=== PATIENT | female | born 1970 | race American Indian/Alaskan Native ===

== ENCOUNTER 2017-06-07 13:35 | Inpatient (IN) | payer MEDICAID, OTHER ==
[2017-06-07 13:35] VITALS: BMI 107.6
--- NOTE | 2017-06-07 14:48 | C.PDOC ---
Time Seen by Provider: 06/07/17 14:36 Chief Complaint (Nursing): Substance Abuse Past Medical History Vital Signs: Last Vital Signs Temp 98.3 F 06/07/17 14:17 Pulse 97 H 06/07/17 14:17 Resp 20 06/07/17 14:17 BP 138/83 06/07/17 14:17 Pulse Ox 100 06/07/17 14:17 - Medical History PMH: Diabetes Denies: Hepatitis, HIV, HTN, Seizures, Sexually Transmitted Disease - [facility] Procedures DETOXIFICATION SERVICES FOR SUBSTANCE ABUSE TREATMENT (02/26/16) Family History: States: Unknown Family Hx - Social History Hx Tobacco Use: No Hx Alcohol Use: No Hx Substance Use: Yes (Heroin; last use yesterday ) - Immunization History Hx Tetanus Toxoid Vaccination: No Hx Influenza Vaccination: Yes Hx Pneumococcal Vaccination: No ED Course And Treatment O2 Sat by Pulse Oximetry: 100 Disposition - Disposition
--- NOTE | 2017-06-07 14:51 | C.PDOC ---
History Of Present Illness 46 y/o female with history of Hep C and DM presents to ED requesting heroin detox, states she uses 5-10 bags daily intranasal and reports last used this morning. Patient has complaints of chronic non healing ulcer to right 1st toe and states her LMP was 05/2017, concerned for . Patient denies fever, chills, nausea, vomiting or any other complaints at this time. Time Seen by Provider: 06/07/17 14:36 Chief Complaint (Nursing): Substance Abuse History Per: Patient History/Exam Limitations: no limitations Onset/Duration Of Symptoms: Days Current Symptoms Are (Timing): Still Present Suicide/Self Injury Attempted (Context): None Past Medical History Reviewed: Historical Data, Nursing Documentation, Vital Signs Vital Signs: Last Vital Signs Temp 98.3 F 06/07/17 14:17 Pulse 97 H 06/07/17 14:17 Resp 20 06/07/17 14:17 BP 138/83 06/07/17 14:17 Pulse Ox 100 06/07/17 15:00 - Medical History PMH: Diabetes Surgical History: No Surg Hx - [facility] Procedures DETOXIFICATION SERVICES FOR SUBSTANCE ABUSE TREATMENT (02/26/16) Family History: States: No Known Family Hx - Social History Hx Tobacco Use: No Hx Alcohol Use: No Hx Substance Use: Yes (Heroin; last use yesterday ) - Immunization History Hx Tetanus Toxoid Vaccination: No Hx Influenza Vaccination: Yes Hx Pneumococcal Vaccination: No Review Of Systems Constitutional: Negative for: Fever, Chills Gastrointestinal: Negative for: Nausea, Vomiting Musculoskeletal: Positive for: Foot Pain Skin: Negative for: Rash Psych: Negative for: Anxiety, Depression, Suicidal ideation Physical Exam - Physical Exam Appears: Non-toxic, No Acute Distress Skin: Warm, Dry, No Rash, Other (Right 1st toe ulcer non healed ) Head: Atraumatic, Normacephalic Eye(s): bilateral: Normal Inspection Oral Mucosa: Moist Neck: Normal ROM, Supple Cardiovascular: Rhythm Regular Respiratory: Normal Breath Sounds, No Rales, No Rhonchi, No Wheezing Gastrointestinal/Abdominal: Soft, No Tenderness, No Guarding, No Rebound Back: No CVA Tenderness Extremity: Normal ROM, Capillary Refill (<2 seconds), No Deformity Neurological/Psych: Oriented x3, Normal Speech, Normal Motor, Normal Sensation ED Course And Treatment - Laboratory Results Result Diagrams: 06/07/17 15:00 06/07/17 15:00 Lab Interpretation: Abnormal (Glucose 284 Patient used her own Insulin injection to cover.) O2 Sat by Pulse Oximetry: 100 (RA) Pulse Ox Interpretation: Normal Progress Note: Blood work, UA ordered. Patient is medically cleared for detox admission. Disposition - Disposition Disposition: HOSPITALIZED Disposition Time: 15:28 Condition: STABLE - POA Present On Arrival: Poor Glycemic Control - Clinical Impression Clinical Impression: Opioid use disorder, severe, dependence - Scribe Statement The provider has reviewed the documentation as recorded by the Mily Boyle All medical record entries made by the Mily were at my direction and personally dictated by me. I have reviewed the chart and agree that the record accurately reflects my personal performance of the history, physical exam, medical decision making, and the department course for this patient. I have also personally directed, reviewed, and agree with the discharge instructions and disposition.
[2017-06-07 15:03] LABS: BASO % 0.5 % (0.0-2.0); EOS # 0.1 K/uL (0.0-0.7); EOS % 1.1 % (0.0-4.0); LYMPH # 2.3 K/uL (1.0-4.3); MEAN CELL VOLUME 89.1 fL (81.0-99.0); MEAN CORPUSCULAR HEMOGLOBIN 30.2 pg (27.0-31.0); MEAN CORPUSCULAR HGB CONC 33.9 g/dL (33.0-37.0); MEAN PLATELET VOLUME 8.1 fL (7.2-11.7); MONO # 0.7 K/uL (0.0-0.8); MONO % 8.2 % (0.0-10.0); NEUT # 5.7 K/uL (1.8-7.0); NEUT % 64.2 % (50.0-75.0); RBC 3.63 Mil/uL (3.80-5.20); RED CELL DISTRIBUTION WIDTH 14.1 % (11.5-14.5)
[2017-06-07 15:10] LABS: HCG,QUALITATIVE URINE NEGATIVE (NEGATIVE); WHITE BLOOD COUNT 8.8 K/uL (4.8-10.8)
[2017-06-07 15:14] LABS: SQUAMOUS EPITHIAL < 1 /hpf (0-5); URINE BILIRUBIN NEGATIVE (NEGATIVE); URINE BLOOD NEGATIVE (NEGATIVE); URINE CLARITY Clear (Clear); URINE COLOR Colorless (YELLOW); URINE GLUCOSE (UA) 3+ mg/dL (Normal); URINE LEUKOCYTE ESTERASE NEG Leu/uL (Negative); URINE PROTEIN NEGATIVE (NEGATIVE); URINE UROBILINOGEN NORMAL mg/dL (0.2-1.0)
[2017-06-07 15:19] LABS: ALBUMIN 3.9 g/dL (3.5-5.0); ALT/SGPT 27 U/L (9-52); AST/SGOT 33 U/L (14-36); BLOOD UREA NITROGEN 14 mg/dL (7-17); CALCIUM 8.8 mg/dl (8.6-10.4); GFR AFRICAN-AMERICAN > 60; GFR NON-AFRICAN AMERICAN > 60
[2017-06-07 15:20] LABS: BARBITURATES, UR NEGATIVE (NEGATIVE); BENZODIAZEPINES, UR NEGATIVE (NEGATIVE); PHENCYCLIDINE, UR NEGATIVE (NEGATIVE)
[2017-06-07 15:27] LABS: OPIATES, UR POSITIVE (NEGATIVE)
--- NOTE | 2017-06-07 16:00 | PCM.BM ---
<Marvin Herron - Last Filed: 06/07/17 16:11> Treatment Plan Problems - Problems identified on initial assessmt potential for opiate withdrawal Date Initiated: 06/07/17 Time Initiated: 16:12 Assessment reference: NA Treatment assets and liabiliti Patient Assests: cooperative, cognitively intact Patient Liabilities: substance abuse, medical problems (diabetic) - Milieu Protocol Maintain good personal hygiene: daily Encourage regular showers, daily Remind patient to perform daily oral care, daily Assist patient to perform ADL's Conduct patient checks and document Observation sheet: Q15 minutes Maintain personal safety: every shift Educate patient to report safety concerns to staff, every shift Monitor environment for contraband/sharps Medication safety: Monitor for expected outcome, potential side effects: daily, Assess barriers to learning: daily, Assess readiness for medication education: daily <Susanna Cervantes - Last Filed: 06/08/17 13:12> Family Contact - Goals for Treatment Patient goals for treatment: Complete detox and transition to outpatient therapy. Discharge/Continuing Care - Education Needs Education Needs: Patient Medication, Patient Diagnosis/Disease Process, Patient Coping Skills, Patient Anger Management skills, Patient Placement options, Patient Community resources - Discharge Discharge Criteria: No longer exhibiting s/s of withdrawal, Reduction of target symptoms Discharge to:: Home - Treatment Team Participation Patient/Family/SO Statement: 06/08/17 13:20 "i wanna go to outpatient after this..." Discussed with Family/SO: No Was Patient/Family/SO present at Treatment Team Meeting: Yes <Ari Wells - Last Filed: 06/10/17 16:49> - Diagnosis (1) Opioid use disorder, severe, dependence Status: Acute Interventions: 06/10/17 16:49 * Assess 7x/week regarding severity of withdrawal * Educate regarding risks, benefits, side effects and alternatives of medications * Use Motivational Interviewing for abstinence * Use CBT for relapse prevention * Medication management for withdrawal symptoms * Encourage medication assisted treatment *
[2017-06-07] MEDS: Insulin Detemir 100 units/ml Vial (Levemir) SC SCH (18:16)
[2017-06-08] MEDS: Insulin Detemir 100 units/ml Vial (Levemir) SC SCH ×2 (10:00→17:59)
--- NOTE | 2017-06-08 10:32 | PCM.PSYCH ---
Initial Psychiatric Evaluation - Initial Psychiatric Evaluation Type of Admission: Voluntary Legal Status: Capacity Chief Complaint (in patient's own words): " I need help." History of Present Illness and Precipitating Events: This is a 46 year old female who presents to the ED for heroin detox. Patient states she is "tired of getting high." Patient uses 10 bags of heroin per day; she states she snorts it. Patient has been using for 4 years. Patient states she has previously been to [facility] for rehab before. She states her longest sobriety is 2 years. Patient states she does not use any other substances, including marijuana, PCP, and cocaine. Patient denies alcohol use. Patient denies tobacco use. Patient states she feels nauseous. She was able to sleep and eat her breakfast. Patient denies previous psychiatric history or hospitalizations. Patient denies depression, suicidal ideation, paranoia, or hallucinations. She states sometimes she gets anxious. Patient states she has never taken medication for anxiety. Medical history: Diabetes Allergies: Family history: denies psych history: denies Current Medications: Active Medications Generic Name Dose Route Start Last Admin Trade Name Freq PRN Reason Stop Dose Admin Aspirin 81 mg 06/08/17 10:00 06/08/17 09:46 Aspirin Chewable PO 81 mg DAILY ROLO Administration Clonidine HCl 0.1 mg 06/07/17 17:46 06/07/17 18:03 Catapres PO 0.1 mg Q6 PRN Administration WITHDRAWAL SYMPTOMS COW>5 Hydroxyzine HCl 25 mg 06/07/17 17:45 06/07/17 21:35 Atarax PO 25 mg Q4 PRN Administration anxiety Insulin Detemir 15 unit 06/07/17 18:00 06/08/17 10:00 Levemir SC 15 unit BID ROLO Administration Loperamide HCl 2 mg 06/07/17 21:20 Imodium PO QID PRN Diarrhea Metformin HCl 1,000 mg 06/07/17 18:00 06/08/17 09:46 Glucophage PO 1,000 mg BID ROLO Administration Rosuvastatin Calcium 20 mg 06/07/17 22:00 06/07/17 21:35 Crestor PO 20 mg HS ROLO Administration Sitagliptin Phosphate 100 mg 06/08/17 10:00 06/08/17 09:47 Januvia PO 100 mg DAILY ROLO Administration Trazodone HCl 50 mg 06/07/17 22:00 06/07/17 21:35 Desyrel PO 50 mg HS ROLO Administration Past Psychiatric History - Past Psychiatric History Previous Treatment History: None History of ETOH/Drug Use: Opioid Use Disorder History of Family Illness: Denies Pertinent Medical Hx (Current Medical&Sleep Prob, Allergies): Allergies Allergy/AdvReac Type Severity Reaction Status Date / Time No Known Allergies Allergy Verified 10/22/15 07:29 Metformin HCl [Metformin] 1,000 mg PO BID 01/06/15 GlipiZIDE [Glipizide] 10 mg PO DAILY 02/26/16 Insulin Glargine, Recombina [Lantus] 0 unit SC ACHS 02/26/16 hydrOXYzine HCl [Atarax] 25 mg PO BID #0 tab 03/02/16 metFORMIN [glucOPHAGE] 1,000 mg PO BIDCC #0 tab 03/02/16 traZODone [Desyrel] 50 mg PO HS PRN #0 tab 03/02/16 Review of Systems - Review of Systems All systems: reviewed and no additional remarkable complaints except - Psychiatric Psychiatric: Anxiety. absent: Depression, Hallucinations, Homicidal Ideation, Hopelessness, Paranoia, Suicidal Ideation Mental Status Examination - Personal Presentation Personal Presentation: Looks stated age - Affect Affect: Broad - Motor Activity Motor Activity: Calm - Reliability in Providing Information Reliability in Providing Information: Fair - Speech Speech: Organized - Mood Mood: Neutral - Formal Thought Process Formal Thought Process: No Impairment - Obsessions/Compulsions Obsessions: No Compulsions: No - Cognitive Functions Orientation: Person, Place, Situation, Time Sensorium: Alert Attention/Concentration: Attentive Abstract Thinking: [place] Estimate of Intelligence: Below average Judgement: Imparied, as evidence by: Poor judgement, Intact, as evidence by: Insight regarding need for hospitalization - Risk Risk: Withdrawal, Diminished functioning - Limitations Limitations: Living alone DSM 5 DX - DSM 5 DSM 5 Diagnosis: Opioid Use Disorder, severe Opioid Withdrawal - Recommended/Plan of Treatment Treatment Recommendations and Plan of Treatment: Start taper Subutex 8mg Gabapentin for augmentation As needed medications All risks, benefits and alternatives of the meds discussed, and the pt agreed and understood. Attend groups and activities Supportive therapy and psychoeducation [place] for abstinence CBT for relapse prevention Encourage MAT Refer to rehab or IOP, and self-help groups 34 min - Smoking Cessation Smoking Cessation Initiated: No
--- NOTE | 2017-06-08 12:30 | CP.PCM.CON ---
History of Present Illness - History of Present Illness History of Present Illness: Podiatry Consult Note- Dr. Velasco This is a 46 yo female pt recently admitted for opioid dependence detox seen at bedside today with Dr. Velasco following request for podiatry consult. Pt states that she has had an ulcer to her L great toe for 1 month. Denies any pain or discomfort to the toe, denies seeing any pus or drainage, denies any recent change in shoe gear. She denies f/n/v/c/sob/cp at this time. PMH: DM2, + Hep C, heroin dependence ALL: NKDA meds: see home med list Soc Hx: heroin abuse Review of Systems - Review of Systems Review of Systems: all systems reviewed and found neg outside hpi Past Patient History - Infectious Disease Hx of Infectious Diseases: None - Tetanus Immunizations Tetanus Immunization: Unknown - Past Medical History & Family History Past Medical History?: Yes - Past Social History Smoking Status: Light Smoker < 10 Cigarettes Daily - CARDIAC Hx Cardiac Disorders: No Hx Hypertension: No - PULMONARY Hx Tuberculosis: No - NEUROLOGICAL HX Cerebrovascular Accident: No Hx Seizures: No - ENDOCRINE/METABOLIC Hx Diabetes Mellitus Type 2: Yes - HEMATOLOGICAL/ONCOLOGICAL Hx Cancer: No Hx Human Immunodeficiency Virus (HIV): No - INTEGUMENTARY Other/Comment: left great toe infection - MUSCULOSKELETAL/RHEUMATOLOGICAL Hx Falls: No - GENITOURINARY/GYNECOLOGICAL Hx Sexually Transmitted Disorders: No - PSYCHIATRIC Hx Substance Use: No - SURGICAL HISTORY Hx Surgeries: Yes Other/Comment: Fibroid removed - ANESTHESIA Hx Anesthesia: Yes Hx Anesthesia Reactions: No Hx Malignant Hyperthermia: No Meds Allergies/Adverse Reactions: Allergies Allergy/AdvReac Type Severity Reaction Status Date / Time No Known Allergies Allergy Verified 10/22/15 07:29 - Medications Medications: Current Medications Aspirin (Aspirin Chewable) 81 mg PO DAILY [facility] Last Admin: 06/08/17 09:46 Dose: 81 mg Clonidine HCl (Catapres) 0.1 mg PO Q6 PRN PRN Reason: WITHDRAWAL SYMPTOMS COW>5 Last Admin: 06/07/17 18:03 Dose: 0.1 mg Hydroxyzine HCl (Atarax) 25 mg PO Q4 PRN PRN Reason: anxiety Last Admin: 06/07/17 21:35 Dose: 25 mg Insulin Detemir (Levemir) 15 unit SC BID [facility] Last Admin: 06/08/17 10:00 Dose: 15 unit Loperamide HCl (Imodium) 2 mg PO QID PRN PRN Reason: Diarrhea Metformin HCl (Glucophage) 1,000 mg PO BID [facility] Last Admin: 06/08/17 09:46 Dose: 1,000 mg Rosuvastatin Calcium (Crestor) 20 mg PO [facility] Last Admin: 06/07/17 21:35 Dose: 20 mg Sitagliptin Phosphate (Januvia) 100 mg PO DAILY [facility] Last Admin: 06/08/17 09:47 Dose: 100 mg Trazodone HCl (Desyrel) 50 mg PO HS [facility] Last Admin: 06/07/17 21:35 Dose: 50 mg Physical Exam - Constitutional Appears: Non-toxic, No Acute Distress - Extremities Exam Additional comments: Left foot focused: dressing appears c/d/i VASC-pedal pulses fully palpable, skin temp runs warm to cool, cap refill brisk to all digits, mild-mod edema noted to L hallux NEURO- gross and protective pedal sensation somewhat diminished DERM- there is a full-thickness ulceration (measures approx 0.5x0.4x0.4cm) noted to distal-medial aspect of L hallux with hyperkeratotic border and mixed fibrous base, there is no purulence, neg drainage, neg PTB, neg malodor, neg erythema MSK- neg tenderness to palp of hallux ulceration, MMT 5/5 all directions - Neurological Exam Neurological exam: Alert, CN II-XII Intact, Oriented x3 - Psychiatric Exam Psychiatric exam: Normal Affect, Normal Mood Results - Vital Signs Recent Vital Signs: Last Vital Signs Temp 99.1 F 06/08/17 08:48 Pulse 96 H 06/08/17 08:48 Resp 18 06/08/17 08:48 BP 135/82 06/08/17 08:48 Pulse Ox 99 06/08/17 08:48 - Labs Result Diagrams: 06/07/17 15:00 06/07/17 15:00 Labs: Laboratory Results - last 24 hr 06/07/17 06/07/17 06/07/17 15:00 15:00 15:00 WBC 8.8 D RBC 3.63 L Hgb 11.0 Hct 32.3 L MCV 89.1 MCH 30.2 MCHC 33.9 RDW 14.1 Plt Count 397 D MPV 8.1 Neut % (Auto) 64.2 Lymph % (Auto) 26.0 [place] % (Auto) 8.2 Eos % (Auto) 1.1 Baso % (Auto) 0.5 Neut # (Auto) 5.7 Lymph # (Auto) 2.3 [place] # (Auto) 0.7 Eos # (Auto) 0.1 Baso # (Auto) 0.0 Sodium 133 Potassium 4.0 Chloride 100 Carbon Dioxide 20 L Anion Gap 17 BUN 14 Creatinine 0.6 L Est GFR ( Amer) > 60 Est GFR (Non-Af Amer) > 60 POC Glucose (mg/dL) Random Glucose 284 H Calcium 8.8 Total Bilirubin 0.3 AST 33 ALT 27 Alkaline Phosphatase 85 Total Protein 7.7 Albumin 3.9 Globulin 3.8 Albumin/Globulin Ratio 1.0 Urine Color Colorless Urine Clarity Clear Urine pH 5.0 Ur Specific [place] 1.008 Urine Protein Negative Urine Glucose (UA) 3+ H Urine Ketones Negative Urine Blood Negative Urine Nitrate Negative Urine Bilirubin Negative Urine Urobilinogen Normal Ur Leukocyte Esterase Neg Urine WBC (Auto) < 1 Urine RBC (Auto) < 1 Ur Squamous Epith Cells < 1 Urine HCG, Qual Negative Urine Opiates Screen Urine Methadone Screen Ur Barbiturates Screen Ur Phencyclidine Scrn Ur Amphetamines Screen U Benzodiazepines Scrn U Oth Cocaine Metabols U Cannabinoids Screen Alcohol, Quantitative < 10 06/07/17 06/07/17 15:00 21:40 WBC RBC Hgb Hct MCV MCH MCHC RDW Plt Count MPV Neut % (Auto) Lymph % (Auto) [place] % (Auto) Eos % (Auto) Baso % (Auto) Neut # (Auto) Lymph # (Auto) [place] # (Auto) Eos # (Auto) Baso # (Auto) Sodium Potassium Chloride Carbon Dioxide Anion Gap BUN Creatinine Est GFR ( Amer) Est GFR (Non-Af Amer) POC Glucose (mg/dL) 235 H Random Glucose Calcium Total Bilirubin AST ALT Alkaline Phosphatase Total Protein Albumin Globulin Albumin/Globulin Ratio Urine Color Urine Clarity Urine pH Ur Specific [place] Urine Protein Urine Glucose (UA) Urine Ketones Urine Blood Urine Nitrate Urine Bilirubin Urine Urobilinogen Ur Leukocyte Esterase Urine WBC (Auto) Urine RBC (Auto) Ur Squamous Epith Cells Urine HCG, Qual Urine Opiates Screen Positive H Urine Methadone Screen Negative Ur Barbiturates Screen Negative Ur Phencyclidine Scrn Negative Ur Amphetamines Screen Negative U Benzodiazepines Scrn Negative U Oth Cocaine Metabols Negative U Cannabinoids Screen Negative Alcohol, Quantitative Assessment & Plan - Assessment and Plan (Free Text) Assessment: 46 yo female pt admitted for opiate detox with ulceration of L hallux 2/2 to poorly controlled diabetic neuropathy Plan: Pt S&E in detox until with Dr. Velasco present L hallux dressed with DSD Sx shoe ordered for ambulation L foot x-ray and bone scan ordered to r/o OM Will follow
[2017-06-08] MEDS ORDERED: Buprenorphine Hydrochloride 2 mg SL ONE ×2 (14:30→18:04)
[2017-06-08] MEDS: Buprenorphine Hydrochloride 2 mg SL SCH ×3 (15:38→18:03)
--- NOTE | 2017-06-08 17:12 | RAD ---
PROCEDURE: Left Foot Radiographs. HISTORY: L hallux ulcer (r/o OM) COMPARISON: None. FINDINGS: BONES: No acute fracture or destructive bony lesion identified. No periosteal reaction or erosive changes seen related to the phalanges of the great toe in particular. JOINTS: Normal. SOFT TISSUES: Wide-based ulceration is suggested at the distal great toe soft tissues medially. Diffuse soft tissue edema surrounds great toe without emphysematous changes grossly evident. OTHER FINDINGS: None. IMPRESSION: Soft tissue changes compatible with the clinical history of ulcer at the great toe however there is no obvious radiographic pattern suggest osteomyelitis at the great toe or remaining osseous elements of the left foot. MRI is more sensitive and can be performed if clinically warranted.
[2017-06-09] MEDS: Buprenorphine Hydrochloride 2 mg SL SCH (09:43)
[2017-06-09] MEDS: Insulin Detemir 100 units/ml Vial (Levemir) SC SCH ×2 (09:44→17:12)
--- NOTE | 2017-06-09 14:18 | CP.PCM.PCO ---
Physician Communication Note - Physician Communication Note Physician Communication Note: Pt refusing bone scan, scan cancelled.
--- NOTE | 2017-06-09 14:53 | PCM.PYCHPN ---
Psychiatric Progress Note - Psychiatric Progress Note Patient seen today, length of contact: 15 minutes Patient Chief Complaint: "I am doing okay." Problems Identified/Issues Discussed: The pt is seen, chart reviewed, case discussed with staff. Patient states she did not sleep well. She states she has pain in her back. Support given, CBT and IL used briefly No new symptoms reported, improving slowly and needs more time No SEs from medications, risks discussed. Medical Problems: Diabetes Medical Record Reviewed: Yes Mental Status Examination - Cognitive Function Orientation: Person, Place, Situation, Time Attention: WNL Concentration: WNL Association: WNL Fund of Knowledge: WNL - Mood Mood: Neutral - Affect Affect: Broad - Speech Speech: Appropriate - Formal Thought Process Formal Thought Process: No Impairment - Suicidal Ideation Suicidal Ideation: No - Homicidal Ideation Homicidal Ideation: No Goal/Treatment Plan - Goal/Treatment Plan Need for Continued Stay: Discharge may exacerbated symptoms Progress Toward Problem(s) and Goals/Treatment Plan: Continue taper Subutex 8mg Gabapentin for augmentation As needed medications All risks, benefits and alternatives of the meds discussed, and the pt agreed and understood. Attend groups and activities Supportive therapy and psychoeducation [place] for abstinence CBT for relapse prevention Encourage MAT Refer to rehab or IOP, and self-help groups 34 min
[2017-06-10] MEDS: Buprenorphine Hydrochloride 2 mg SL SCH (11:12)
[2017-06-10] MEDS: Insulin Detemir 100 units/ml Vial (Levemir) SC SCH ×2 (11:15→18:13)
--- NOTE | 2017-06-10 14:43 | PCM.PYCHPN ---
Psychiatric Progress Note - Psychiatric Progress Note Patient seen today, length of contact: 15 minutes Patient Chief Complaint: I'm feeling little better but I still have problems sleeping and no appetite. Problems Identified/Issues Discussed: Patient seen, chart reviewed, case discussed with the staff. Issues related to illness and treatment were discussed with the patient and staff. Reported compliant with treatment with no adverse affects. Tolerating treatment very well. Patient reported feeling little better. Patient also complaining about decreased sleep and no appetite. Will increase the dose of trazodone to 100 mg from 50 mg. Patient agreed Aftercare discussed with the patient. At the time of evaluation, patient was awake alert oriented 3, no delusions, no auditory visual hallucinations, no suicidal ideations or homicidal ideations. Medical Problems: Diabetes mellitus Diagnostic Results: Reviewed DSM 5 Symptoms Update: Some improvement between Medication Change: Yes (Dose of trazodone increased to 100 mg) Medical Record Reviewed: Yes Consults ordered or reviewed: Reviewed Mental Status Examination - Cognitive Function Orientation: Person, Place, Situation, Time Memory: Intact Attention: WNL Concentration: WNL Association: WN Fund of Knowledge: [facility] Decription of patient's judgement and insights: Fair - Mood Mood: Anxious - Affect Affect: Other (Appropriate) - Speech Speech: Appropriate - Formal Thought Process Formal Thought Process: No Impairment Psychotic Thoughts and Behaviors: None - Suicidal Ideation Suicidal Ideation: No - Homicidal Ideation Homicidal Ideation: No Goal/Treatment Plan - Goal/Treatment Plan Need for Continued Stay: Remain at risks for inpatient hospitalization, Discharge may exacerbated symptoms, Severe functional impairment Progress Toward Problem(s) and Goals/Treatment Plan: Patient education Supportive therapy CBT for relapse prevention [place] for abstinence Will increase the dose of trazodone to 100 mg at night Continue rest of the treatment as before. Patient will decide aftercare with the help of social work lecturer. Estimated Date of D/C: 06/12/17 - Smoking Cessation Smoking Cessation Initiated: No
[2017-06-11] MEDS: Buprenorphine Hydrochloride 2 mg SL SCH (10:04)
[2017-06-11] MEDS: Insulin Detemir 100 units/ml Vial (Levemir) SC SCH ×2 (10:04→17:50)
--- NOTE | 2017-06-11 13:17 | PCM.PYCHPN ---
Psychiatric Progress Note - Psychiatric Progress Note Patient seen today, length of contact: 15 minutes Patient Chief Complaint: I'm feeling better, my sleep was also good. Problems Identified/Issues Discussed: Patient seen, chart reviewed, case discussed with the staff. Issues related to illness and treatment were discussed with the patient and staff. Reported compliant with treatment with no adverse affects. Tolerating treatment very well. Patient reported feeling better. Her sleep was also good after increasing dose of trazodone. Calm and cooperative, good eye contact. Aftercare discussed with the patient. At the time of evaluation, patient was awake alert oriented 3, no delusions, no auditory visual hallucinations, no suicidal ideations or homicidal ideations. Medical Problems: Diabetes mellitus Diagnostic Results: Reviewed DSM 5 Symptoms Update: Improving with treatment Medication Change: No Medical Record Reviewed: Yes Consults ordered or reviewed: Reviewed Mental Status Examination - Cognitive Function Orientation: Person, Place, Situation, Time Memory: Intact Attention: WNL Concentration: WNL Association: WNL Fund of Knowledge: WN Decription of patient's judgement and insights: Fair - Mood Mood: Anxious (Much less than before) - Affect Affect: Other (Appropriate) - Speech Speech: Appropriate - Formal Thought Process Formal Thought Process: No Impairment Psychotic Thoughts and Behaviors: None - Suicidal Ideation Suicidal Ideation: No - Homicidal Ideation Homicidal Ideation: No Goal/Treatment Plan - Goal/Treatment Plan Need for Continued Stay: Remain at risks for inpatient hospitalization, Discharge may exacerbated symptoms, Severe functional impairment Progress Toward Problem(s) and Goals/Treatment Plan: Patient education Supportive therapy CBT for relapse prevention [place] for abstinence Continue treatment as before. Patient will decide aftercare with the help of high school social studies teacher. Estimated Date of D/C: 06/12/17 - Smoking Cessation Smoking Cessation Initiated: No
[2017-06-11 16:46] VITALS: BP 128/83; PULSE 98; RESP 18; TEMP 98.4; O2SAT 99
--- NOTE | 2017-06-11 20:27 | CP.PCM.PN ---
Subjective - Date & Time of Evaluation Date of Evaluation: 06/11/17 Time of Evaluation: 12:00 - Subjective Subjective: Podiatry Progress Note - Dr. Velasco 46F seen and evaluated at bedside for left great toe ulceration. Patient hemodynamically stable and NAD. NAEON. Endorses minimal pain to L hallux. Ambulating with surgical shoe L foot w/o any issues. Offers no other complaints. Denies N/V/F/D/C/SOB/MENSAH/dizziness. Objective - Vital Signs/Intake and Output Vital Signs (last 24 hours): Temp Pulse Resp BP Pulse Ox 98.4 F 98 H 18 128/83 99 06/11/17 16:45 06/11/17 16:45 06/11/17 16:45 06/11/17 16:45 06/11/17 16:45 - Labs Labs: 06/07/17 15:00 06/07/17 15:00 - Constitutional Appears: Well, Non-toxic, No Acute Distress - Extremities Exam Additional comments: Left foot focused: dressing appears c/d/i VASC-pedal pulses fully palpable, skin temp runs warm to cool, cap refill brisk to all digits, mild-mod edema noted to L hallux NEURO- gross and protective pedal sensation somewhat diminished DERM- there is a full-thickness ulceration (measures approx 0.5x0.4x0.4cm) noted to distal-medial aspect of L hallux with hyperkeratotic border and mixed fibrous base, there is no purulence, neg drainage, neg PTB, neg malodor, neg erythema MSK- neg tenderness to palp of hallux ulceration, MMT 5/5 all directions - Neurological Exam Neurological Exam: Alert, Awake, Oriented x3 - Psychiatric Exam Psychiatric exam: Normal Affect, Normal Mood Assessment and Plan - Assessment and Plan (Free Text) Assessment: 46 yo female pt admitted for opiate detox with ulceration of L hallux 2/2 to poorly controlled diabetic neuropathy Plan: Patient seen and evaluated Discussed with attending, Dr. Krista Roberson hallux dressed with DSD Continue surgical shoe L foot for ambulation L foot x-ray negative for OM Patient refusing bone scan A[place] [facility] [place] to follow
== END 2017-06-11 18:30 | disposition left against medical advice (07) | DRG 743 ==
LOC: C.ER 13:35 → C.7D 15:29
PROVIDERS: ADMIT Psychiatry & Neurology Psychiatry; ATTEND Psychiatry & Neurology Psychiatry
PROC: HZ52ZZZ Individual Psychotherapy for Substance Abuse Treatment, Cognitive-Behavioral (ICD-10-PCS; principal; 2017-06-07)
PROC: HZ2ZZZZ Detoxification Services for Substance Abuse Treatment (ICD-10-PCS; 2017-06-07)
PROC: HZ59ZZZ Individual Psychotherapy for Substance Abuse Treatment, Supportive (ICD-10-PCS; 2017-06-07)
PROC: HZ56ZZZ Individual Psychotherapy for Substance Abuse Treatment, Psychoeducation (ICD-10-PCS; 2017-06-07)
DX: F11.23 Opioid dependence with withdrawal (principal); E11.40 Type 2 diabetes mellitus with diabetic neuropathy, unspecified; L97.529 Non-pressure chronic ulcer of other part of left foot with unspecified severity; E11.621 Type 2 diabetes mellitus with foot ulcer; B19.20 Unspecified viral hepatitis C without hepatic coma; E11.65 Type 2 diabetes mellitus with hyperglycemia; F17.210 Nicotine dependence, cigarettes, uncomplicated